=== PATIENT | female | born 2000 | race Caucasian/White ===

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

== ENCOUNTER 2024-12-09 19:47 | Emergency (ER) | payer BC, OTHER ==
[~2024-12-09] VITALS: Ht 165.1 cm; Wt 90.9 kg
[2024-12-09 20:01] VITALS: TEMP 98.8
[2024-12-09 20:35] LABS: PLATELET COUNT (AUTO) 352 K/uL (150-450); RED BLOOD CELL COUNT(AUTO) 4.34 MIL/uL (4.00-5.20); RED CELL DISTRIBUTION WIDTH 13.1 % (11.5-14.5); WHITE BLOOD COUNT (AUTO) 10.6 K/uL (4.5-11.0)
[2024-12-09 20:43] LABS: CALCIUM, TOTAL 8.9 mg/dL (8.8-10.5); CREATININE 0.67 mg/dL (0.60-1.30); GLOMERULAR FILTR. RATE CALC > 60 mL/min (>60); GLUCOSE,RANDOM 123 mg/dL (70-110); SODIUM SERUM 137 mmol/L (136-145); UREA NITROGEN, BLOOD 5 mg/dL (7-18)
[2024-12-09 21:25] LABS: COVID AG,FIA SOURCE NASAL SWAB
[2024-12-09 21:49] LABS: SARS-COV2 (COVID) ANTIGEN,FIA Negative (Negative)
[2024-12-09 23:34] VITALS: BP 114/71; PULSE 77; RESP 16; O2SAT 98
== END 2024-12-09 23:46 | disposition home or self-care (01) ==
LOC: EMS 19:47
DX: F41.9 Anxiety disorder, unspecified (principal); Z20.822 Contact with and (suspected) exposure to COVID-19
CPT/HCPCS: 99283; 87426; 80048; 84703; 85025; 36415; G0480